=== PATIENT | male | born 1965 | race Caucasian/White ===

== ENCOUNTER 2024-07-01 15:42 | Outpatient (REF) | payer OTHER, SELFPAY ==
[2024-07-01 18:00] LABS: Lymphocytes Percent Auto 21.9 % (20-40); SCAN SMEAR FLAG 1
[2024-07-01 18:02] LABS: Basophils Percent Auto 0.4 % (0-2); Eosinophils Absolute Auto 0.2 X10*3/uL (0.0-0.4); Eosinophils Percent Auto 2.5 % (0-4); Hematocrit 43.3 % (42.0-52.0); Hemoglobin 13.8 g/dl (14.0-18.0); Imm Gran Abs Auto 0.03 X10*3/uL (0.00-0.03); Imm Gran Pct Auto 0.4 % (0.0-0.4); Lymphocytes Absolute Auto 1.6 X10*3/uL (1.2-4.9); MANUAL DIFF FLAG SCAN; Mean Corpuscular HGB Conc 31.9 g/dl (31.0-36.0); Mean Corpuscular Hemoglobin 20.3 pg (27.0-33.0); Monocytes Absolute Auto 0.5 X10*3/uL (0.1-1.2); Monocytes Percent Auto 6.9 % (2-11); Neutrophils Percent Auto 67.9 % (45-73); Platelet Count 246 X10*3/uL (160-400); Red Blood Count 6.79 X10*6/uL (4.60-5.80); White Blood Count 7.3 X10*3/uL (4.8-10.8)
[2024-07-01 18:03] LABS: Mean Corpuscular Volume 63.8 fL (80.0-98.0); PLT ABN DIST 1
[2024-07-01 18:09] LABS: Alanine Aminotransferase 23 U/L (0-40); Albumin Level 4.5 g/dL (3.5-5.0); Alkaline Phosphatase 56 U/L (39-117); Anion Gap 11 (12-20); Aspartate Amino Transferase 25 U/L (5-37); Bilirubin Total 1.4 mg/dL (0.0-1.0); Blood Urea Nitrogen 17 mg/dL (9-16); Calcium 9.4 mg/dL (8.4-10.2); Carbon Dioxide 25 mmol/L (22-29); Chloride 106 mmol/L (96-108); Cholesterol 236 mg/dL (<200); Estimated Glomerular Filt Rate > 60; Glucose Random 89 mg/dL (60-115); HDL Cholesterol 50 mg/dL (>40); LDL Cholesterol Calculated 169 mg/dL (<100); Potassium 4.1 mmol/L (3.3-5.1); Sodium 138 mmol/L (135-145); Total Protein 7.4 g/dL (6.5-8.0); Triglycerides 87 mg/dL (<150)
[2024-07-01 18:19] LABS: SLIDE REVIEW VERIFIED
[2024-07-01 18:27] LABS: TSH reflex Free T4 4.37 uIU/mL (0.32-4.0)
[2024-07-01 19:46] LABS: Free T4 (Free Thyroxine) 0.89 ng/dL (0.71-1.85)
[2024-07-02 08:28] LABS: HIV AB/AG Nonreactive (Nonreactive); HIV Num 1 0.05 S/CO (0.00-0.99); ~HepC Num1 0.11 S/CO (0.00-0.79); ~Hepatitis C Antibody Nonreactive (Nonreactive)
== END 2024-07-01 15:43 | disposition home or self-care (01) ==
LOC: HO.CHCLDS 15:42
PROVIDERS: Visit Provider Internal Medicine
DX: I10 Essential (primary) hypertension (principal)
CPT/HCPCS: 36415; 80053; 80061; 84439; 84443; 85025; 86803; 87389

== ENCOUNTER 2024-07-12 14:37 | Outpatient (REF) | payer OTHER, SELFPAY ==
[2024-07-12 17:54] LABS: Immature Retic Fraction 12.1 % (2.3-13.4); Retic HGB Equivalent 22.6 pg (30.0-35.0); Reticulocyte Percent 1.3 % (0.5-1.8); Reticulocytes Absolute 0.089 X10*6/uL (0.026-0.095)
[2024-07-12 18:40] LABS: Iron 93 mcg/dL (45-160); Percent Iron Saturation 30 % (15-50); Total Iron Binding Capacity 308 mcg/dL (228-428); Unsaturated Iron Binding 215 ug/dL
[2024-07-12 18:46] LABS: Ferritin 122 ng/mL (20-250)
== END 2024-07-12 14:38 | disposition home or self-care (01) ==
LOC: HO.CHCLDS 14:37
PROVIDERS: Visit Provider Internal Medicine
DX: D50.9 Iron deficiency anemia, unspecified (principal)
CPT/HCPCS: 36415; 82728; 83540; 85045

== ENCOUNTER 2025-08-23 10:41 | Outpatient (AMB) | payer OTHER, SELFPAY ==
--- NOTE | 2025-08-23 10:57 | A.OFFVIS_ITS ---
Vital Signs 3 08/23/25 11:06 Height 5 ft 8 in Weight 207 lb BMI 31.5 BP 151/76 H Blood Pressure Location Rt brachial Position Sitting Pulse 82 Intake Visit Reasons: Right inguinal hernia Intake Note: Patient referred by PCP Dr. Salas for assessment of Right inguinal hernia. Patient c/o: bulges out. Denies pain. appeared out of nowhere. Hx of back problems, takes Tylenol Arthritis as needed. [employer] Senior Specialist Required: No Accompanied by: Self / Same As Patient Allergies No Known Allergies Allergy (Verified 08/23/25 11:08) Medication List - Last Reconciled 08/23/25 by Robinson Gomez MD No Known Home Meds HPI Comments Details: 59-year-old gentleman with a history of right inguinal hernia here for consideration. Patient reports he has had the hernia for quite some time. He notes it is gradually getting larger and he finds it bothersome. He denies any pain or obstructive symptoms but he wishes to have it repaired. [facility] Medical History (Updated 08/23/25 @ 11:23 by Robinson Gomez MD) Nerve damage Social History (Updated 08/23/25 @ 11:11 by ELLE Burrell) Alcohol intake: current Alcohol intake frequency: holidays/special occasions only Patient Tobacco Use Status: Former Tobacco user Review of Systems Const All systems reviewed & are unremarkable except as noted in HPI and below Physical Exam Vital Signs: Last Vital Signs Pulse 82 08/23/25 11:06 BP 151/76 H 08/23/25 11:06 BMI result Body Mass Index 31.5 Const General: cooperative, healthy appearing and comfortable Orientation/consciousness: oriented to person HEENT Head: Yes normal to inspection, Yes normocephalic and Yes atraumatic Ears: hearing grossly normal bilaterally General nose exam: Normal external nose present Face and sinus: Yes normal facial exam Eyes Pupils: Equal, round and reactive pupils present EOM: EOMs intact bilaterally Neck Neck: Yes normal visual inspection Chest Chest palpation & inspection: normal inspection of the chest Resp Effort & Inspection: normal respiratory effort and able to speak in complete sentences Cardio Rate: regular rate Rhythm: regular rhythm GI Inspection: Yes normal to inspection Abdomen image: 2 1. Right moderate inguinal scrotal hernia, reducible. No evidence of hernia in the left. General: Yes no CVA tenderness Back/Spine/Pelvis Back: no CVA tenderness Thoracic/Lumbar Spine: thoracic and lumbar spine normal to inspection Neuro General: oriented to person Cranial nerves: Yes CN's II-XII intact bilaterally and Yes Equal, round and reactive pupils present Assessment & Plan Assessment & Plan (1) Right inguinal hernia: Code(s): K40.90 - Unilateral inguinal hernia, without obstruction or gangrene, not specified as recurrent Category: Medical Plan: I offered the patient intervention in the form of laparoscopic possible open right inguinal hernia repair with mesh. I reviewed with him in detail the risks that are involved with such an undertaking. These include but are not limited to the risk of bleeding the risks of infection of the risk of recurrence the risk of chronic pain the risk of damage to surrounding structures risk of conversion to an open procedure the risk of damage to the spermatic cord resulting in testicular compromise and the risk of unsightly scarring were all reviewed with him in detail. He told me that he understood. He told me that he accepted the risks that he described as inherent to such an operation and lastly he indicated that despite the risks he still wished to proceed with surgery. Coding Level of Care Code New Pt Level 3 (03965) Diagnoses Right inguinal hernia K40.90 Time Spent (min) 30 Comment Patient visit record review and coordination of care time
[2025-08-23 11:06] VITALS: BP 151/76; PULSE 82; BMI 31.5
--- OUTSIDE RECORDS SUMMARY | 2025-08-23 13:37 | XMS_ITS | Encounter Summary ---
Author Organization [employer] Address [address] [facility] [address] [place] [address] Care Team Providers Care Ammunition Storage Superintendent Name Role Phone Mick Salas MD Primary Care Provider [phone] Reason for Visit * Reason Onset Date Comments Medication Question 08/16/2025 Encounter Details Date Type Department Care Team ([facility] Contact Info) Description 08/16/2025 Telephone [facility] [address] [place] [address] Mick Salas MD [address] [place], [place] [phone] Medication Question Social History Tobacco Use Types Packs/Day Years Used Date Smoking Tobacco: Former Cigarettes Smokeless Tobacco: Never Comments:Smoked x 8 years ( 1 pack a day ). Quit in 1996 Alcohol Use Standard Drinks/Week Comments Never 0 (1 standard drink = 0.6 oz pur e alcohol) Alcohol Answer Date Recorded How often do you have a drink containing alcohol ? 1 08/15/2025 How many drinks containing a lcohol do you have on a typical day when you are drinking? 0 08/15/2025 How often do you have six or more drinks on one occasion? 0 08/15/2025 Depression Answer Date Recorded Patient Health Questionnaire-9 Score 0 08/15/2025 Patient Health Questionnaire-9 Score 0 08/15/2025 Last PHQ-9: Questionnaire Data Not on file 1 10/16/2024 Housing Stability Answer Date Recorded What is your housing situation today? I have gina recio 08/15/[address] you li ve. Do you have problems with any of the following? None of the above 08/15/2025 Food Insecurity Answer Date Recorded Within the past 12 months, y ou worried that your food would run out before you got money to buy more: Never True 08/15/2025 Within the past 12 months,th e food you bought just didn't last and you didn't have enough money to get more: Never True 04/2025 Transportation Answer Date Recorded In the past 12 months, has l ack of transportation kept you from medical appts, meetings, work or from getting things needed for daily living? No 08/15/2025 Utilities Answer Date Recorded In the past 12 months, has t he electric, gas, oil or water company threatened to shut off services in your home? No 08/15/2025 Depression Answer Date Recorded Patient Health Questionnaire-2 Score 0 08/15/2025 Internet Access Answer Date Recorded Internet Access Q1 Yes 08/15/2025 Internet Access Q2 Not on file 08/15/2025 Sex and Gender Information Value Date Recorded Sex Assigned at Male 07/01/2024 2:37 PM EDT Legal Sex Male 1:52 PM EDT Gender Identity Male 07/01/2024 2:37 PM EDT Sexual Orientation Straight 07/01/2024 2: 37 PM EDT documented as of this encounter Miscellaneous Notes * Telephone Encounter - Juan David Galindo - 08/19/2025 11:50 AM EST [facility] requesting for the new frequency to be faxed to the pharmacy at [phone] * Telephone Encounter - Brandi Cavazos RN - 08/17/2025 10:43 AM EST Rinse entire body with water, then wash with minimum amount necessary to cover entire body daily, rinse thoroughly after daily Clarification of application for Hibiclens to pharmacy as requested. Called [facility], pharmacy on file. No response after waiting on the line 18 minutes. * Telephone Encounter - Vivienne Freire - 08/16/2025 4:03 PM EST TC from [facility] requesting a call back regarding the medication listed below. [facility] is requesting clarification on the application. - Chlorhexidine Gluconate (Hibiclens) 4 % solution documented in this encounter Plan of Treatment Not on file documented as of this encounter Visit Diagnoses Not on filedocumented in this encounter Additional Health Concerns Assessment Noted Time PHQ-9 Depression Total Score: 0 08/15/20 25 3:21 PM EST documented as of this encounter Care Teams Ammunition Storage Superintendent Relationship Specialty Start Date End Date Mick Salas MD [address] [place] [phone] PCP - General Internal Medicine 07/01/24 documented as of this encounter
--- OUTSIDE RECORDS SUMMARY | 2025-08-23 13:37 | XMS_ITS | Encounter Summary ---
Author Organization [employer] Address [address] [facility] [address] [place] [address] Care Team Providers Care Community Relations Representative Name Role Phone Mick Salas MD Primary Care Provider [phone]- [phone] Reason for Visit * Reason Onset Date Comments Medication Question 08/16/2025 Encounter Details Date Type Department Care Team ([facility] Contact Info) Description 08/16/2025 Telephone [facility] [address] [place], [place] [phone] Mick Salas MD [address] [place], [place] [phone] Medication Question Social History Tobacco Use Types [...] encounter Miscellaneous Notes * Telephone Encounter - Mick Salas MD - 08/16/2025 1:36 PM EST TY. FYI. Beatris sent To [facility]. * Telephone Encounter - Brandi Cavazos RN - 08/16/2025 12:47 PM EST Called pt regarding request, spoke to . states pt seen yesterday by PCP and advised antibacterial soap for his back. Pt never got a script and is requesting a script be sent to his pharmacy on file. Will task to PCP. understands and agrees with plan. * Telephone Encounter - Janey Cornejo - 08/16/2025 8:10 AM EST Tc from pt requesting update on script for anti bacterial soap that was discussed during last visit Contact at [phone] documented in this encounter Plan of Treatment Not on file documented as of this encounter Visit Diagnoses Not on filedocumented in this encounter Additional Health Concerns Assessment Noted Time PHQ-9 Depression Total Score: 0 08/15/20 25 3:21 PM EST documented as of this encounter Care Teams Community Relations Representative Relationship Specialty Start Date End Date Mick Salas MD [address] [place] [phone] PCP - General Internal Medicine 07/01/24 documented as of this encounter
--- OUTSIDE RECORDS SUMMARY | 2025-08-23 13:37 | XMS_ITS | Encounter Summary ---
Author Organization [employer] Address [address] [facility] [address] [place] [address] Care Team Providers Care Survey Data Technician Name Role Phone Mick Salas MD Primary Care Provider [phone]- [phone] Encounter Details Date Type Department Care Team (Late st Contact Info) Description 07/02/2024 Orders Only [facility] PEDS [address] [place], [place] [phone] Mick Salas MD [address] [place], [place] [phone] Microcytic anemia (Primary Dx) Social History Tobacco Use Types Packs/Day Years Used Date Smoking Tobacco: Former Cigarettes Smokeless Tobacco: Never Comments:Smoked x 8 years ( 1 pack a day ). Quit in 1996 Alcohol Use Standard Drinks/Week Comments Never 0 (1 standard drink = 0.6 oz pur e alcohol) Sex and Gender Information Value Date Recorded Sex Assigned at Male 07/01/2024 2:37 PM EDT Legal Sex Male 1:52 PM EDT Gender Identity Male 07/01/2024 2:37 PM EDT Sexual Orientation Straight 07/01/2024 2: 37 PM EDT documented as of this encounter Plan of Treatment Scheduled Orders Name Type Priority Associated Diagnoses Orde r Schedule Hemoglobinopathy evaluation Lab Routine Microcytic anemia Expected: 07/02/2024 (Approximate), Expires: 07/02/2025 documented as of this encounter Procedures Procedure Name Priority Date/Time Associated Diagnosis Comments IRON AND TOTAL IRON BINDING CAPACITY Routine 07/12/2024 2:39 PM EST Microcytic anemia RETICULOCYTE COUNT Routine 07/12/2024 2: 39 PM EST Microcytic anemia FERRITIN Routine 07/12/2024 2:39 PM EST Microcytic anemia documented in this encounter Results * (ABNORMAL) Reticulocyte Count (07/12/2024 2:39 PM EST) Reticulocytes Absolute 0.089 0.026 - 0.095 X10*6/uL [facility] Immature Retic Fraction 12.1 2.3 - 13.4 % [facility] Retic HGB Equivalent 22.6(L) 30.0 - 35.0 pg [facility] Reticulocyte Percent 1.3 0.5 - 1.8 % [facility] Blood Venous blood specimen / Unknown 07/12/2024 2:39 PM EST 07/12/2024 5:36 PM EST us Mick Salas MD LAB BLOOD ORDERABLES Final Result Performing Organization Address City/[facility]/ZIP Co de Phone Number [facility] [address] [place] [phone] * Ferritin (07/12/2024 2:39 PM EST) Pathologist [facility] Ferritin 122 20 - 250 ng/mL [facility] Blood Venous blood specimen / Unknown 07/12/2024 2:39 PM EST 07/12/2024 5:36 PM EST us Mick Salas MD LAB BLOOD ORDERABLES Final Result Performing Organization Address [facility] Co de Phone Number [facility] [address] [place] [phone] * Iron And Total Iron Binding Capacity (07/12/2024 2:39 PM EST) Iron 93 45 - 160 mcg/dL [facility] Total Iron Binding Capacity 308 228 - 428 mcg/dL [facility] Percent Iron Saturation 30 15 - 50 % [facility] Unsaturated Iron Binding 215 ug/dL [facility] Blood Venous blood specimen / Unknown 07/12/2024 2:39 PM EST 07/12/2024 5:36 PM EST us Mick Salas MD LAB BLOOD ORDERABLES Final Result Performing Organization Address City/State/[facility] Co de Phone Number [facility] [address] [place] [phone] documented in this encounter Visit Diagnoses Diagnosis Microcytic anemia- Primary Unspecified iron deficiency anemia documented in this encounter Care Teams Survey Data Technician Relationship Specialty Start Date End Date Mick Salas MD [address] [place] [phone] PCP - General Internal Medicine 07/01/24 documented as of this encounter
--- OUTSIDE RECORDS SUMMARY | 2025-08-23 13:37 | XMS_ITS | Encounter Summary ---
Author Organization [email or web address] Address [address] [facility] [address] [place] [address] Care Team Providers Care Crib Clerk Name Role Phone Mick Salas MD Primary Care Provider [phone]- [phone] Reason for Visit * Reason Onset Date Comments Medication Question 08/22/2025 Encounter Details Date Type Department Care Team ([facility] Contact Info) Description 08/22/2025 Telephone [facility] [address] [place] [address] Mick Slaas MD [address] [place], [place] [phone] Medication Question Social History Tobacco Use Types [...] encounter Miscellaneous Notes * Telephone Encounter - Brandi Cavazos RN - 08/22/2025 4:41 PM EST Spoke to pharmacy, [facility] for clarification of script for Hibiclens. Advised once daily Hibiclens wash as documented. Advised to call back as needed. * Telephone Encounter - Torey Back - 08/22/2025 3:41 PM EST Tc from [facility] pharmacy requesting a call back for Chlorhexidine Gluconate (Hibiclens) 4 % solution stating they need specific instructions for script. Please contact Betty at [phone]. documented in this encounter Plan of Treatment Not on file documented as of this encounter Visit Diagnoses Not on filedocumented in this encounter Additional Health Concerns Assessment Noted Time PHQ-9 Depression Total Score: 0 08/15/20 25 3:21 PM EST documented as of this encounter Care Teams Crib Clerk Relationship Specialty Start Date End Date Mick Salas MD [address] [place] [phone] PCP - General Internal Medicine 07/01/24 documented as of this encounter
--- OUTSIDE RECORDS SUMMARY | 2025-08-23 13:37 | XMS_ITS | Encounter Summary ---
Author Organization [employer] Address [address] [facility] [address] [place] [address] Care Team Providers Care Support Architect Name Role Phone Mick Salas MD Primary Care Provider [phone] Encounter Details Date Type Department Care Team (Late st Contact Info) Description 08/19/2025 Telephone [facility] [address] [place], [place] [phone] Brandi Cavazos, GLORY [address] [place], [place] [phone] Social History Tobacco Use Types Packs/Day Years [...] Telephone Encounter - Brandi Cavazos RN - 08/19/2025 12:06 PM EST Called pharmacy on file to clarify script for Hibiclelinda, unable to reach. Held on the line x18 minutes. documented in this encounter Plan of Treatment Not on file documented as of this encounter Visit Diagnoses Not on filedocumented in this encounter Additional Health Concerns Assessment Noted Time PHQ-9 Depression Total Score: 0 08/15/20 25 3:21 PM EST documented as of this encounter Care Teams Support Architect Relationship Specialty Start Date End Date Mick Salas MD [address] [place] [phone] PCP - General Internal Medicine 07/01/24 documented as of this encounter
--- OUTSIDE RECORDS SUMMARY | 2025-08-23 13:37 | XMS_ITS | Clinical Summary ---
Author Organization [employer] Address [address] [place] [address] 7t [place] [address] Care Team Providers Care Cigarette Carton Sealer Name Role Phone Mick Salas MD Primary Care Provider +1- [phone] Allergies No known active allergies Medications Chlorhexidine Gluconate (Hibiclens) 4 % solution Apply topically. Active Chlorhexidine Gluconate (Hibiclens) 4 % solutionIndicat ions:Folliculit is Rinse area with water, then cover affected skin, wash gently. Rinse again thoroughly. 236 mL 1 08/16/2025 Active Active Problems Problem Noted Date Diagnosed Date Primary hypertension 07/01/2024 Encounters Date Type Department Care Team Description 08/22/2025 Telephone [facility] [address] [place] [phone] Mick Salas MD Medication Question 08/19/2025 Telephone [facility] [address] [place] [address] [phone] Brandi Cavazos, GLORY 08/16/2025 Telephone [facility] [address] [place] [address] [phone] Mick Salas MD Medication Question 08/16/2025 Orders Only [facility] [address] [place], [place] [phone] Mick Salas MD Folliculitis (Primary Dx) 08/16/2025 Telephone [facility] [address] [place], [place] [phone] Mick Salas MD Medication Question 08/15/2025 2:45 PM EST Office Visit [facility] [address] [place] [address] Mick Salas MD Primary hypertension (Primary Dx); Dietary counseling; Exercise counseling; Class 1 obesity due to excess calories with serious comorbidity and body mass index (BMI) of 31.0 to 31.9 in adult; Right inguinal hernia 08/15/2025 Travel 08/08/2025 Patient Outreach [facility] [address] [place] [address] Mick Salas MD Pre-visit Planning (SDOH will need to be completed in office.) from Last 3 Months Immunizations Immunization Administration Dates Next Due Tdap 07/01/2024 Social History Tobacco Use Types Packs/Day Years Used Date Smoking Tobacco: Former Cigarettes Smokeless Tobacco: Never Tobacco Cessation:Counseling Given: No Comments:Smoked x 8 years ( 1 pack [...] Orientation Straight 07/01/2024 2: 37 PM EDT Last Filed Vital Signs Vital Sign Reading Time Taken Comments Blood Pressure 188/89 08/15/2025 2:45 PM EST Pulse 90 08/15/2025 2:45 PM EST Temperature 36.7 C (98.1 F) 08/15/2025 2:45 PM EST Respiratory Rate 21 08/15/2025 2:45 PM EST Oxygen Saturation 99% 08/15/2025 2:45 PM EST Inhaled Oxygen Concentration - - Weight 93 kg (205 lb) 08/15/2025 2:45 PM EST Height 172.7 cm (5' 8 ) 08/15/2025 2:45 PM EST Body Mass Index 31.17 08/15/2025 2:45 PM EST Plan of Treatment Health Maintenance Due Date Last Done Comments CT Colonography 1963 Colonoscopy 1963 FIT DNA/Cologuard 1963 FIT 1963 FOBT 1963 Sigmoidoscopy 1963 Disability Screening 1963 Influenza Vaccine (#1) 2026 Postp oned from 05/09/2025 (Patient Refused) Alcohol/Substance Use Screening 08/15/2026 08/15/2025 COVID-19 Vaccine (2024-2 6 season) 2026 01/28/2021, 01/07/2021 Postponed from 05/09/2025 (Patient Refused) Colorectal Cancer Screening 08/15/2026 Postponed from 1963 (Patient Refused) Depression Screening 08/15/2026 08/15/2025, 08/15/2025 Pneumococcal Vaccine: 50+ Years (1 of 1 - PCV) 08/15/2026 Postponed from 08/09 (Patient Refused) SDOH Screening 08/15/2026 08/15/2025 Tobacco Screening 08/15/2026 08/15/2025 Zoster Vaccines (1 of 2) 08/15/2026 Pos tponed from 2013 (Patient Refused) Lipid Panel 07/01/2029 07/01/2024 DTaP/Tdap/Td Vaccines (2 - T d or Tdap) 07/01/2034 07/01/2024 RSV Patients and Patients Aged 60 years or older (1 - 1-dose 75+ series) 2038 HIV Screening Completed 07/01/2024 Hepatitis C Screening Completed 07/01/2024 HIB Vaccines Aged Out No longer eligi ble based on patient's age to complete this topic HPV Vaccines Aged Out No longer eligi ble based on patient's age to complete this topic Hepatitis A Vaccines Aged Out No long er eligible based on patient's age to complete this topic Hepatitis B Vaccines Aged Out No long er eligible based on patient's age to complete this topic IPV Vaccines Aged Out No longer eligi ble based on patient's age to complete this topic Meningococcal B Vaccine Aged Out No l onger eligible based on patient's age to complete this topic Meningococcal Vaccine Aged Out No shari guillermo eligible based on patient's age to complete this topic RSV under 20 months Aged Out No longe r eligible based on patient's age to complete this topic Rotavirus Vaccines Aged Out No longer eligible based on patient's age to complete this topic Procedures Procedure Name Priority Date/Time Associated Diagnosis Comments HEPATITIS C AB W/REFL TO HCV RNA, QN, PCR Routine 07/01/2024 3:48 PM EDT Primary hypertension HIV 1/2 ANTIGEN/ANTIBODY, FOURTH GENERATION W/RFL Routine 07/01/2024 3:48 PM EDT Primary hypertension LIPID PANEL, STANDARD Routine 07/01/2024 3:48 PM EDT Primary hypertension from Last 3 Months or Most Recently Relevant to Health Maintenance Results * Hepatitis C Antibody with Reflex to HCV, RNA, Quantitative, Real-Time PCR (07/01/2024 3:48 PM EDT) Hepatitis C Antibody Nonreactive Nonreactive [facility] Comment:Antibodies to HCV no t detected; does not exclude early acuteHCV infection. Blood Venous blood specimen / Unknown 07/01/2024 3:48 PM EDT 07/01/2024 5:35 PM EDT us Mick Salas MD LAB BLOOD ORDERABLES Final Result [facility] [address] [place] [phone] * HIV-1/2 Antigen and Antibodies, Fourth Generation, with Reflexes (07/01/2024 3:48 PM EDT) Pathologist [facility] HIV AB/AG Nonreactive Nonreactive [facility] Comment:HIV-1 p24 Ag and/or HIV-1/HIV-2 Ab not detected.A test result that is nonreactive does not exclude thepossibility of exposure to or infection with HIV-1 and/orHIV-2. Nonreactive results in this assay for individualswith prior exposure to HIV-1 and/or HIV-2 may be due toantigen and antibody levels that are below the limit ofdetection of this assay.[employer] HIV Ag/Ab Combo assay result andsupplemental assay results should be interpreted inconjunction with the patient's clinical presentation,history and other laboratory results. If the results areinconsistent with clinical evidence, additional testing issuggested to confirm the result. Blood Venous blood specimen / Unknown 07/01/2024 3:48 PM EDT 07/01/2024 5:35 PM EDT us Mick Salas MD LAB BLOOD ORDERABLES Final Result [facility] [address] [place] [phone] * (ABNORMAL) Lipid Panel, Standard (07/01/2024 3:48 PM EDT) Triglycerides 87 <150 mg/dL [facility] Comment:Desirable Triglyceri de: less than 150 mg/dLBorderline High Triglyceride 150-199 mg/dLHigh Triglyceride: 200-499 mg/dLVery High Triglyceride: greater than or equal to 5OO mg/dL Cholesterol 236(H) <200 mg/dL [facility] Comment:Desirable Cholestero l: less than 200 mg/dLBorderline High Cholesterol: 200-239 mg/dLHigh Cholesterol: greater than 239 mg/dL LDL Cholesterol Calculated 169(H) <100 mg/dL [facility] Comment:Desirable LDL: less than 100 mg/dLNear Optimal/Above Optimal LDL: 110- 129 mg/dLBorderline High LDL: 130-159 mg/dLHigh LDL: 160-189 mg/dLVery High LDL: greater than or equal to 190 mg/dL HDL Cholesterol 50 >40 mg/dL [facility] Comment:Desirable HDL: great er than 40 mg/dL Note: This HDL assay may give artificially low results in patients with liver disease. Blood Venous blood specimen / Unknown 07/01/2024 3:48 PM EDT 07/01/2024 5:37 PM EDT Mick Salas MD LAB BLOOD ORDERABLES Final Result [facility] [address] [place], [place] [phone] from Last 3 Months or Most Recently Relevant to Health Maintenance Insurance [facility] NAVIGATE Care Teams Cigarette Carton Sealer Relationship Specialty Start Date End Date Mick Salas MD [address] [place] [phone] PCP - General Internal Medicine 07/01/24
--- OUTSIDE RECORDS SUMMARY | 2025-08-23 13:37 | XMS_ITS | Encounter Summary ---
Author Organization [employer] Address [address] [facility] 7t [place] [address] Care Team Providers Care Uat Tester Name Role Phone Mick Salas MD Primary Care Provider [phone] [phone] Encounter Details Date Type Department Care Team (Late st Contact Info) Description 08/16/2025 Orders Only [facility] [address] [place], [place] [phone] Mick Salas MD [address] [place], [place] [phone] Folliculitis (Primary Dx) Social History Tobacco Use Types [...] as of this encounter Plan of Treatment Not on file documented as of this encounter Visit Diagnoses Diagnosis Folliculitis- Primary Other specified disease of hair and hair follicles documented in this encounter Additional Health Concerns Assessment Noted Time PHQ-9 Depression Total Score: 0 08/15/20 25 3:21 PM EST documented as of this encounter Care Teams Uat Tester Relationship Specialty Start Date End Date Mick Salas MD [address] [place] [phone] PCP - General Internal Medicine 07/01/24 documented as of this encounter
== END 2025-08-23 11:22 | disposition home or self-care (01) ==
LOC: HO.HGS 10:41
PROVIDERS: PCP Internal Medicine; Visit Provider Surgery
DX: K40.90 Unilateral inguinal hernia, without obstruction or gangrene, not specified as recurrent (principal)
CPT/HCPCS: 99203

== ENCOUNTER 2025-09-05 10:02 | Outpatient (REF) | payer OTHER, SELFPAY ==
--- OUTSIDE RECORDS SUMMARY | 2025-09-05 11:16 | XMS_ITS | Encounter Summary ---
Author Organization [employer] Address [address] [facility] 7 [place] [address] Care Team Providers Care Title I Director Name Role Phone Mick Salas MD Primary Care Provider [phone]- [phone] Encounter Details Date Type Department Care Team (Late st Contact Info) Description 07/02/2024 Orders Only [facility] [address] [place], [place] [phone] Mick Salas MD [address] [place], [place] [phone] Microcytic anemia (Primary Dx) Social History Tobacco [...] Reticulocytes Absolute 0.089 0.026 - 0.095 X10*6/uL [facility] Immature Retic Fraction 12.1 2.3 - 13.4 % [facility] Retic HGB Equivalent 22.6(L) 30.0 - 35.0 pg [facility] Reticulocyte Percent 1.3 0.5 - 1.8 % [facility] Blood Venous blood specimen / Unknown 07/12/2024 2:39 PM EST 07/12/2024 5:36 PM EST us Mick Salas MD LAB BLOOD ORDERABLES Final Result Performing Organization Address City/[facility]/ZIP Co de Phone Number [facility] [address] [place] [phone] * Ferritin (07/12/2024 2:39 PM EST) Pathologist [facility] Ferritin 122 20 - 250 ng/mL [facility] Blood Venous blood specimen / Unknown 07/12/2024 2:39 PM EST 07/12/2024 5:36 PM EST us Mick Salas MD LAB BLOOD ORDERABLES Final Result Performing Organization Address [facility] Co de Phone Number [facility] [address] [place] [phone] * Iron And Total Iron Binding Capacity (07/12/2024 2:39 PM EST) Iron 93 45 - 160 mcg/dL [facility] Total Iron Binding Capacity 308 228 - 428 mcg/dL [facility] Percent Iron Saturation 30 15 - 50 % [facility] Unsaturated Iron Binding 215 ug/dL [facility] Blood Venous blood specimen / Unknown 07/12/2024 2:39 PM EST 07/12/2024 5:36 PM EST us Mick Salas MD LAB BLOOD ORDERABLES Final Result Performing Organization Address City/State/[facility] Co de Phone Number [facility] [address] [place] [phone] documented in this encounter Visit Diagnoses Diagnosis Microcytic anemia- Primary Unspecified iron deficiency anemia documented in this encounter Care Teams Title I Director Relationship Specialty Start Date End Date Mick Salas MD [address] [place] [phone] PCP - General Internal Medicine 07/01/24 documented as of this encounter
--- OUTSIDE RECORDS SUMMARY | 2025-09-05 11:16 | XMS_ITS | Clinical Summary ---
Author Organization [employer] Address [address] [place] [address] 7t [place] [address] Care Team Providers Care Medical Transcription Radiology Name Role Phone Mick Salas MD Primary Care Provider [phone]- [phone] Allergies No known active allergies Medications Chlorhexidine Gluconate (Hibiclens) 4 % solution Apply topically. Active Chlorhexidine Gluconate (Hibiclens) 4 % solutionIndicat ions:Folliculit is Rinse area with water, then cover affected skin, wash gently. Rinse again thoroughly. 236 mL 1 08/16/2025 Active Active Problems Problem Noted Date Diagnosed Date Primary hypertension 07/01/2024 Encounters Date Type Department Care Team Description 08/22/2025 Telephone [facility] [address] [place] [phone] Mick Salas MD Medication Question 08/19/2025 Telephone [facility] [address] [place] [address] [phone] Brandi Cavazos, GLORY 08/16/2025 Telephone [facility] [address] [place] [phone] Mick Salas MD Medication Question 08/16/2025 Orders Only [facility] [address] [place], [place] [phone] Mick Salas MD Folliculitis (Primary Dx) 08/16/2025 Telephone [facility] [address] [place], [place] [phone] Mick Salas MD Medication Question 08/15/2025 2:45 PM EST Office Visit [facility] [address] [place] [address] Mick Salas MD Primary hypertension (Primary Dx); Dietary counseling; Exercise counseling; Class 1 obesity due to excess calories with serious comorbidity and body mass index (BMI) of 31.0 to 31.9 in adult; Right inguinal hernia 08/15/2025 Travel 08/08/2025 Patient Outreach [facility] [address] [place] [address] Mick Salas MD Pre-visit Planning (SDOH will [...] PM EDT) Hepatitis C Antibody Nonreactive Nonreactive [facility] Comment:Antibodies to HCV no t detected; does not exclude early acuteHCV infection. Blood Venous blood specimen / Unknown 07/01/2024 3:48 PM EDT 07/01/2024 5:35 PM EDT us Mick Salas MD LAB BLOOD ORDERABLES Final Result [facility] [address] [place] [phone] * HIV-1/2 Antigen and Antibodies, Fourth Generation, with Reflexes (07/01/2024 3:48 PM EDT) Pathologist [facility] HIV AB/AG Nonreactive Nonreactive [facility] Comment:HIV-1 p24 Ag and/or HIV-1/HIV-2 Ab not detected.A test result that is nonreactive does not exclude thepossibility of exposure to or infection with HIV-1 and/orHIV-2. Nonreactive results in this assay for individualswith prior exposure to HIV-1 and/or HIV-2 may be due toantigen and antibody levels that are below the limit ofdetection of this assay.[employer] HIV Ag/Ab Combo assay result andsupplemental assay results should be interpreted inconjunction with the patient's clinical presentation,history and other laboratory results. If the results areinconsistent with clinical evidence, additional testing issuggested to confirm the result. Blood Venous blood specimen / Unknown 07/01/2024 3:48 PM EDT 07/01/2024 5:35 PM EDT us Mick Salas MD LAB BLOOD ORDERABLES Final Result [facility] [address] [place] [phone] * (ABNORMAL) Lipid Panel, Standard (07/01/2024 3:48 PM EDT) Triglycerides 87 <150 mg/dL [facility] Comment:Desirable Triglyceri de: less than 150 mg/dLBorderline High Triglyceride 150-199 mg/dLHigh Triglyceride: 200-499 mg/dLVery High Triglyceride: greater than or equal to 5OO mg/dL Cholesterol 236(H) <200 mg/dL [facility] Comment:Desirable Cholestero l: less than 200 mg/dLBorderline High Cholesterol: 200-239 mg/dLHigh Cholesterol: greater than 239 mg/dL LDL Cholesterol Calculated 169(H) <100 mg/dL [facility] Comment:Desirable LDL: less than 100 mg/dLNear Optimal/Above Optimal LDL: 110- 129 mg/dLBorderline High LDL: 130-159 mg/dLHigh LDL: 160-189 mg/dLVery High LDL: greater than or equal to 190 mg/dL HDL Cholesterol 50 >40 mg/dL [facility] Comment:Desirable HDL: great er than 40 mg/dL Note: This HDL assay may give artificially low results in patients with liver disease. Blood Venous blood specimen / Unknown 07/01/2024 3:48 PM EDT 07/01/2024 5:37 PM EDT Mick Salas MD LAB BLOOD ORDERABLES Final Result [facility] [address] [place], [place] [phone] from Last 3 Months or Most Recently Relevant to Health Maintenance Insurance [facility] NAVIG[employer] Care Teams Medical Transcription Radiology Relationship Specialty Start Date End Date Mick Salas MD [address] [place] [phone] PCP - General Internal Medicine 07/01/24
--- OUTSIDE RECORDS SUMMARY | 2025-09-05 11:16 | XMS_ITS | Encounter Summary ---
Author Organization [employer] Address [address] [facility] 7 [place] [address] Care Team Providers Care Resolution Agent Name Role Phone Mick Salas MD Primary Care Provider +1- [phone] Reason for Visit * Reason Onset Date Comments Medication Question 08/16/2025 Encounter Details Date Type Department Care Team ([facility] Contact Info) Description 08/16/2025 Telephone [facility] [address] [place], [place] [phone] Mick Salas MD [address] [place], [place] [phone] Medication Question Social History Tobacco Use Types [...] PM EST TY. FYI. Beatris sent To [facility]. * Telephone Encounter - Brandi Cavazos RN [...] was discussed during last visit Contact at [phone] documented in this encounter Plan of Treatment Not on file documented as of this encounter Visit Diagnoses Not on filedocumented in this encounter Additional Health Concerns Assessment Noted Time PHQ-9 Depression Total Score: 0 08/15/20 25 3:21 PM EST documented as of this encounter Care Teams Resolution Agent Relationship Specialty Start Date End Date Mick Salas MD [address] [place] [phone] PCP - General Internal Medicine 07/01/24 documented as of this encounter
--- OUTSIDE RECORDS SUMMARY | 2025-09-05 11:16 | XMS_ITS | Encounter Summary ---
Author Organization [employer] Address [address] [facility] 7t [place] [address] Care Team Providers Care Credit Interviewer Name Role Phone Mick Salas MD Primary Care Provider +1 [phone] Encounter Details Date Type Department Care Team (Late st Contact Info) Description 08/16/2025 Orders Only [facility] [address] [place], [place] [phone] Mick Salas MD [address] [place], [place] [phone] Folliculitis (Primary Dx) Social History Tobacco Use [...] documented as of this encounter Care Teams Credit Interviewer Relationship Specialty Start Date End Date Mick Salas MD [address] [place] [phone] PCP - General Internal Medicine 07/01/24 documented as of this encounter
[2025-09-05 14:59] LABS: MANUAL DIFF FLAG NO
[2025-09-05 15:03] LABS: Hematocrit 47.5 % (42.0-52.0); Hemoglobin 14.5 g/dl (14.0-18.0); Imm Gran Abs Auto 0.02 X10*3/uL (0.00-0.03); Imm Gran Pct Auto 0.3 % (0.0-0.4); Lymphocytes Absolute Auto 1.4 X10*3/uL (1.2-4.9); Mean Corpuscular HGB Conc 30.5 g/dl (31.0-36.0); Mean Corpuscular Hemoglobin 20.1 pg (27.0-33.0); Mean Corpuscular Volume 65.7 fL (80.0-98.0); NRBC Abs Auto 0.000 X10*3/uL (0.0-0.012); NRBC Pct Auto 0.0 /100WBC (0.0-0.2); Platelet Count 240 X10*3/uL (160-400); Red Blood Count 7.23 X10*6/uL (4.60-5.80); White Blood Count 6.6 X10*3/uL (4.8-10.8)
[2025-09-05 15:37] LABS: Alanine Aminotransferase 22 U/L (0-40); Albumin Level 4.6 g/dL (3.5-5.0); Alkaline Phosphatase 58 U/L (39-117); Anion Gap 11 (12-20); Aspartate Amino Transferase 23 U/L (5-37); Blood Urea Nitrogen 20 mg/dL (9-16); Calcium 9.6 mg/dL (8.4-10.2); Carbon Dioxide 29 mmol/L (22-29); Chloride 105 mmol/L (96-108); Cholesterol 221 mg/dL (<200); Estimated Glomerular Filt Rate > 60; HDL Cholesterol 44 mg/dL (>40); Potassium 4.6 mmol/L (3.3-5.1); Sodium 140 mmol/L (135-145); Total Protein 7.1 g/dL (6.5-8.0); Triglycerides 123 mg/dL (<150)
[2025-09-05 17:02] LABS: Free T4 (Free Thyroxine) 0.95 ng/dL (0.71-1.85)
== END 2025-09-05 10:03 ==
LOC: HO.CHCLDS 10:02
PROVIDERS: PCP Internal Medicine; Referring Provider Surgery; Visit Provider Internal Medicine
DX: I10 Essential (primary) hypertension (principal); E66.811 Obesity, class 1; Z68.31 Body mass index [BMI] 31.0-31.9, adult
CPT/HCPCS: 36415; 80053; 80061; 84439; 84443; 85025